=== PATIENT | female | born 2005 | race Two or more races ===

== ENCOUNTER 2024-06-20 19:54 | Observation (INO) | payer OTHER ==
[~2024-06-20] VITALS: Ht 172.7 cm; Wt 62.1 kg
[2024-06-20] MEDS: LACTATED RINGER'S 1,000 ML IV ONE (21:19)
--- NOTE | 2024-06-20 21:21 | DVH ---
EXAM: US OB ULTRASOUND COMP GTR 14 WKS HISTORY: NO CARE, PTL TECHNIQUE: Multiple real-time grayscale images of the gravid uterus with duplex Doppler color flow an d M-mode spectral analysis. COMPARISON: None FINDINGS: IUP single live fetus at 35 weeks, 0 days average ultrasound age (AUA) based on composite averages of the BPD, head circumference, abdominal circumference and femur length MEASUREMENTS: BPD: 8.7 cm GA: 35 w 1 d HC: 31.6 cm GA: 35 w 4 d AC: 30 cm GA: 33 w 5 d FL: 7.0 cm GA: 35 w 5 d Estimated weight 2473 grams; lbs oz, percentile. heart rate 160 beats per minute COLTEN 18.6 cm ANATOMIC SURVEY: Cephalic Presentation No placenta without previa or abruption Cervix is closed IMPRESSION: 1. IUP single live fetus at 35 weeks, 0 days, AUA corresponding to an GILBERTO of July 25, 2024. 2. No abnormality detected.
[2024-06-20] MEDS: TERBUTALINE SULFATE 1 MG/ML 1ML VIAL SC SCH (21:25)
--- NOTE | 2024-06-21 14:15 | DVHDS2 ---
Physician Discharge Progress N Final Diagnosis: cramping Operations or Procedures: Operations or Procedures nst,,sono Condition on Discharge: Good Disposition: Home Discharge Instructions: Diet: Regular Activity: Light activity Medications: na Follow Up Care: Specialist: 2d Discharge Statement: "Patient was advised to return to the ER or call 911 if any headaches, dizziness , shortness of breath, chest pain, abdominal pain, bleeding, fevers, or worsening of medical condition. Patient was counseled about treatment plan, medications, possible side effects, patientverbalized understanding. All questions were answered to the best of my ability. This discharge took greater then 30 minutes in planning, reviewing documentation, counseling the patient, and discussing with other team members." ANDREAS PARRA DO Jun 21, 2024 14:15
== END 2024-06-20 23:28 | disposition home or self-care (01) ==
LOC: LDRP 19:54
PROVIDERS: ADMIT Obstetrics & Gynecology; ATTEND Obstetrics & Gynecology
DX: O62.9 Abnormality of forces of labor, unspecified (principal); O99.891 Other specified diseases and conditions complicating pregnancy; M54.9 Dorsalgia, unspecified; Z3A.35 35 weeks gestation of pregnancy; Z79.899 Other long term (current) drug therapy; Z98.890 Other specified postprocedural states
CPT/HCPCS: 59025; 76805; 81002; 94760; 96360; 96361; 96372; G0378; J3105

== ENCOUNTER 2024-07-03 16:58 | Observation (INO) | payer OTHER ==
--- NOTE | 2024-07-03 18:20 | DVH ---
EXAM: US Abdomen Complete CLINICAL INDICATION: right sided abdominal pain TECHNIQUE: Real-time ultrasound of the abdomen with image documentation. COMPARISON: None FINDINGS: LIVER: Hepatopetal blood flow in the main portal vein. Liver measures up to 16.5 cm. No intrahepat ic bile duct dilation. GALLBLADDER: Unremarkable. No gallstones. COMMON BILE DUCT: Unremarkable as visualized. No stones. No dilation. Common bile duct measures 0 .35 cm in diameter. PANCREAS: Unremarkable as visualized. KIDNEYS: Right kidney measures up to 10.2 cm. No stones. No hydronephrosis. SPLEEN: Unremarkable. No splenomegaly. AORTA: Unremarkable. No aneurysm. INFERIOR VENA CAVA: Unremarkable. OTHER FINDINGS: . . IMPRESSION: Unremarkable exam. HS:Y
[2024-07-03 18:59] LABS: Basophils # (auto) 0 10 ^3/uL (0-0.2); Basophils % (auto) 0.4 % (0.0-2.0); Eosinophils # (auto) 0.1 10 ^3/uL (0-0.8); Eosinophils % (auto) 0.7 % (0.0-7.0); Hematocrit 32.4 % (36.0-46.0); Hemoglobin 10.4 g/dL (12.2-16.2); Lymphocytes # (auto) 1.1 10 ^3/uL (0.4-5.4); Lymphocytes % (auto) 8.9 % (10.0-50.0); Mean Corpuscular Hemoglobin 25.9 pg (28.0-32.0); Mean Corpuscular Volume 80.9 fL (80.0-100.0); Monocytes # (auto) 0.5 10 ^3/uL (0-1.3); Monocytes % (auto) 4.5 % (0.0-12.0); Neutrophils # (auto) 10.2 10 ^3/uL (1.6-8.6); Neutrophils % (auto) 85.5 % (37.0-80.0); Platelet Count (auto) 464 10^3/uL (140-450); White Blood Cell 11.9 10^3/uL (4.4-10.8)
[2024-07-03 19:07] LABS: Alanine Aminotransferase 34 U/L (7-40); Albumin 4.1 g/dL (3.2-4.8); Anion Gap 8 (5-15); Aspartate Aminotransferase 21 U/L (13-40); BUN/Creatinine Ratio 14.4 (10.0-20.0); Blood Urea Nitrogen 13 mg/dL (9-23); Calcium 9.6 mg/dL (8.7-10.4); Carbon Dioxide 23 mmol/L (20-31); Chloride 104 mmol/L (98-107); Glucose 80 mg/dL (74-106); Potassium 4.3 mmol/L (3.5-5.1)
[2024-07-03 19:08] LABS: Total Protein 7.8 g/dL (5.7-8.2)
[2024-07-03 19:17] LABS: Alkaline Phosphatase 259 U/L (46-116); Bilirubin, Total 0.3 mg/dL (0.2-1.0); Sodium 135 mmol/L (136-145)
[2024-07-03 19:24] LABS: INR 0.94 (0.9-1.15); Partial Thromboplastin Time 28.2 SEC (24.5-34.5)
[2024-07-03 19:37] LABS: Uric Acid 4.4 mg/dL (3.1-7.8)
[2024-07-03 19:59] LABS: Urine Bacteria MOD /hpf (None Seen); Urine Blood 1+ /uL (Negative); Urine Clarity Turbid (Clear); Urine Color Colorless (Yellow); Urine Protein, UAD 1+ (Negative); Urine Specific Gravity 1.005 (1.001-1.035); Urine Urobilinogen Normal (Negative); Urine WBC 357 /hpf (0 - 5); Urine WBC Clumps PRESENT /hpf (None Seen); Urine pH 6.5 (5.0-9.0)
[2024-07-03] MEDS ORDERED: FER325T PO (20:02)
[2024-07-03] MEDS ORDERED: PREN-96 PO (20:02)
[2024-07-03 20:08] LABS: Protein, Urine 82.6 mg/dL (1-14)
[2024-07-03 20:10] LABS: Creatinine, Urine 19.06 mg/dL (30.0-125.0); Urine Protein/Creatinine Ratio 4.33
[2024-07-03 20:14] LABS: Amphetamine Screen, Urine Neg (NEGATIVE); Barbiturate Scree,Urine Neg (NEGATIVE); Benzodiazephine Screen, Urine Neg (NEGATIVE); Cannabinoid Screen, Urine Neg (NEGATIVE); Cocaine Screen, Urine Neg (NEGATIVE); Opiate Scree,Urine Neg (NEGATIVE); Phencyclidine Screen, Urine Neg (NEGATIVE)
--- NOTE | 2024-07-03 20:43 | DVHDS2 ---
Physician Discharge Progress N Final Diagnosis: right sided abdominal pain Operations or Procedures: Operations or Procedures S: 19yo IUP@36.6wks presents to OB triage with right sided abdominal pain that starts from under her right breast and down to her pelvis then radiates down her right leg. Denies UCs/LOF/VB/ASTUDILLO/vision changes. Endorses +FM. No care because she could not find an OB provider to accept her for care. Pt found out she was at 27 weeks. GILBERTO of 07/25/24 is based on a OB complete sono done here on 06/20/24. O: VSS, normotensive NST reactive GBS swab collected SVE by RN: /-3 Laboratory Tests Test 07/03/24 17:24 07/03/24 17:45 07/03/24 19:53 Range/Units Urine Color Colorless Yellow Urine Clarity Turbid H Clear Urine pH 6.5 5.0-9.0 Urine Specific [place] 1.005 1.001-1.035 Urine Protein 1+ H Negative Urine Ketones Negative Negative Urine Blood 1+ H Negative /uL Urine Nitrite Negative Negative Urine Bilirubin Negative Negative Urine Urobilinogen Normal Negative mg/dL Urine Leukocyte Esterase 3+ Negative /uL Urine RBC 5 0 - 4 /hpf Urine WBC 357 0 - 5 /hpf Urine WBC Clumps Present None Seen /hpf Urine Squamous Epithelial Cells Few <5 /hpf Urine Bacteria Mod H None Seen /hpf Urine Creatinine 19.06 L 30.0-125.0 mg/dL Urine Protein/Creatinine Ratio 4.33 Urine Glucose Normal Normal mg/dL Urine Total Protein 82.6 H 1-14 mg/dL Urine Opiates Screen Neg NEGATIVE Urine Fentanyl Screen Neg NEGATIVE Urine Barbiturates Screen Neg NEGATIVE Urine Phencyclidine Screen Neg NEGATIVE Urine Amphetamines Screen Neg NEGATIVE Urine Benzodiazepines Screen Neg NEGATIVE Urine Cocaine Screen Neg NEGATIVE Urine Cannabinoids Screen Neg NEGATIVE White Blood Count 11.9 H 4.4-10.8 10^3/uL Red Blood Count 4.00 4.0-5.20 10^6/uL Hemoglobin 10.4 L 12.2-16.2 g/dL Hematocrit 32.4 L 36.0-46.0 % Mean Corpuscular Volume 80.9 80.0-100.0 fL Mean Corpuscular Hemoglobin 25.9 L 28.0-32.0 pg Mean Corpuscular Hemoglobin Concent 32.0 32.0-36.0 g/dL Red Cell Distribution Width 14.0 11.8-14.3 % Platelet Count 464 H 140-450 10^3/uL Mean Platelet Volume 7.1 6.9-10.8 fL Neutrophils (%) (Auto) 85.5 H 37.0-80.0 % Lymphocytes (%) (Auto) 8.9 L 10.0-50.0 % Monocytes (%) (Auto) 4.5 0.0-12.0 % Eosinophils (%) (Auto) 0.7 0.0-7.0 % Basophils (%) (Auto) 0.4 0.0-2.0 % Neutrophils # (Auto) 10.2 H 1.6-8.6 10 ^3/uL Lymphocytes # (Auto) 1.1 0.4-5.4 10 ^3/uL Monocytes # (Auto) 0.5 0-1.3 10 ^3/uL Eosinophils # (Auto) 0.1 0-0.8 10 ^3/uL Basophils # (Auto) 0 0-0.2 10 ^3/uL Nucleated Red Blood Cells 0.0 % Prothrombin Time 10.0 9.3-11.8 sec Prothrombin Time INR 0.94 0.9-1.15 Activated Partial Thromboplast Time 28.2 24.5-34.5 SEC Sodium Level 135 L 136-145 mmol/L Potassium Level 4.3 3.5-5.1 mmol/L Chloride Level 104 98-107 mmol/L Carbon Dioxide Level 23 20-31 mmol/L Anion Gap 8 5-15 Blood Urea Nitrogen 13 9-23 mg/dL Creatinine 0.90 0.550-1.02 mg/dL Glomerular Filtration Rate Calc 94 >90 mL/min BUN/Creatinine Ratio 14.4 10.0-20.0 Serum Glucose 80 74-106 mg/dL Hemoglobin A1c 4.9 <5.7 % A1C Uric Acid 4.4 3.1-7.8 mg/dL Calcium Level 9.6 8.7-10.4 mg/dL Total Bilirubin 0.3 0.2-1.0 mg/dL Aspartate Amino Transferase (AST) 21 13-40 U/L Alanine Aminotransferase (ALT) 34 7-40 U/L Alkaline Phosphatase 259 H 46-116 U/L Total Protein 7.8 5.7-8.2 g/dL Albumin 4.1 3.2-4.8 g/dL Rapid Plasma Reagin Pending Treponema pallidum Ab (TP-PA) Pending Chlamydia trachomatis (ROSE) Pending Hepatitis B Surface Antigen Negative Negative Hepatitis C Antibody Negative Negative HIV (1&2) Antibody Negative Negative Neisseria gonorrhoeae (ROSE) Pending Rubella IgG Antibody Pending TB Test (QFT) Gold Plus Pending TB Test (QFT) Nil Pending TB Test (QFT) Mitogen Pending TB Test (QFT) Antigen 1 Pending TB Test (QFT) Antigen 2 Pending TB Test (QFT) Criteria Pending A: 19yo IUP@36.6wks Right sided abdominal pain P: D/C home Dr. Holden consulted, pt is to return 07/05/24 morning with 24 hr urine collection. kick counts and Preeclampsia warning signs reviewed. PTL/labor precautions given and when to return to the hospital. Other Interventions Other Interventions [place] [address] Ph: [phone] DIAGNOSTIC IMAGING Diagnostic Imaging Report : [id number] Signed PATIENT: NIKOLAS BOYD ACCT: [id number] UNIT: [id number] : 2005 LOC: [facility] ROOM / BED: TRIAGE3 / A AGE / SEX: 19 / F ADM STATUS: ADM IN SERVICE 1742 ORDERING PHYSICIAN: ENRIQUE CROW CNM PROCEDURE(s): ABDC - ABDOMEN COMPLETE SONOGRAM REASON: right sided abdominal pain ORDER NUMBER(s): [id number], ACCESSION NUMBER(s): [id number] EXAM: US Abdomen Complete CLINICAL INDICATION: right sided abdominal pain TECHNIQUE: Real-time ultrasound of the abdomen with image documentation. COMPARISON: None FINDINGS: LIVER: Hepatopetal blood flow in the main portal vein. Liver measures up to 16.5 cm. No intrahepatic bile duct dilation. GALLBLADDER: Unremarkable. No gallstones. COMMON BILE DUCT: Unremarkable as visualized. No stones. No dilation. Common bile duct measures 0.35 cm in diameter. PANCREAS: Unremarkable as visualized. KIDNEYS: Right kidney measures up to 10.2 cm. No stones. No hydronephrosis. SPLEEN: Unremarkable. No splenomegaly. AORTA: Unremarkable. No aneurysm. INFERIOR VENA CAVA: Unremarkable. OTHER FINDINGS: . . IMPRESSION: Unremarkable exam. HS:Y ATED BY: HARISH HERNANDEZ MD DICTATED DATE/TIME: 07/03/241817 SIGNED BY: HARISH HERNANDEZ MD SIGNED DATE/TIME: 07/03/241817 CC: Condition on Discharge: Stable Disposition: Home Discharge Instructions: Diet: Regular Activity: No Restrictions, As Tolerated Medications: see med list Follow Up Care: Specialist: Pt is to return 07/05/24 morning with 24 hr urine collection Discharge Statement: "Patient was advised to return to the ER or call 911 if any headaches, dizziness, shortness of breath, chest pain, abdominal pain, bleeding, fevers, or worsening of medical condition. Patient was counseled about treatment plan, medications, possible side effects, patientverbalized understanding. All questions were answered to the best of my ability. This discharge took greater then 30 minutes in planning, reviewing documentation, counseling the patient, and discussing with other team members." ENRIQUE CROW [facility] Jul 03, 2024 20:43
[2024-07-03] MEDS ORDERED: ACET-1304 PO (20:44)
[2024-07-05 08:06] LABS: RPR Non Reactive (Non Reactive)
[2024-07-05 23:06] LABS: Chlamydia Trachomatis, NAA Negative (Negative); Neisseria gonorrhoeae, NAA Negative (Negative)
== END 2024-07-03 20:58 | disposition home or self-care (01) ==
LOC: LDRP 16:58
PROVIDERS: ADMIT Obstetrics & Gynecology; ATTEND Obstetrics & Gynecology
DX: O26.893 Other specified pregnancy related conditions, third trimester (principal); R10.11 Right upper quadrant pain; R10.31 Right lower quadrant pain; Z3A.36 36 weeks gestation of pregnancy; Z79.899 Other long term (current) drug therapy
CPT/HCPCS: 36415; 59025; 76700; 80053; 80307; 81001; 81002; 82570; 83036; 84156; 84550; 85025; 85610; 85730; 86592; 86703; 86762; 86780; 86803; 86850; 86900; 86901; 87081; 87086; 87340; 87491; 87591; 94760; G0378; 87088; 87186

== ENCOUNTER 2024-07-05 19:02 | Observation (INO) | payer MEDICAID, OTHER ==
[~2024-07-05] VITALS: Ht 172.7 cm; Wt 59.0 kg
[~2024-07-05 19:02] MED LIST: ACET-1304 PO; FER325T PO; PREN-96 PO
--- NOTE | 2024-07-05 20:41 | DVH ---
[facility] [address] [facility] [address] Ph: [phone] DIAGNOSTIC IMAGING Diagnostic Imaging Report : [id number] Signed PATIENT: NIKOLAS BOYD ACCT: [id number] UNIT: [id number] : 2005 LOC: LD ROOM / BED: TRIAGE3 / A AGE / SEX: 19 / F ADM STATUS: ADM IN SERVICE 35 ORDERING PHYSICIAN: HIPOLITO DOMINGUEZ DO PROCEDURE(s): BPP - BIOPHYSICAL PROFILE REASON: Mikaela ORDER NUMBER(s): [id number], ACCESSION NUMBER(s): [id number] BIOPHYSICAL PROFILE HISTORY: Mikaela TECHNIQUE: Multiple transabdominal real-time grayscale sonographic images through the gravid uterus of the fetus with duplex Doppler color flow and M-mode spectral analysis FINDINGS: BIOPHYSICAL PROFILE: breathing score: 2 movement score: 2 tone score: 2 Quantitative COLTEN score: 2 (COLTEN: 16.1 Cm.) Total score: 8/8 Single live fetus in cephalic presentation. heart rate 129 beats per minute. Grade 2-3 placenta without previa or abruption. Posterior Single live fetus at 37 weeks 1 day Biophysical profile score 8/8 corresponding to an GILBERTO of 07/25/2024 IMPRESSION: 1. Biophysical profile score: 8/8 ATED BY: PARI GUY Jr., DO DICTATED DATE/TIME: 07/05/242037 SIGNED BY: PARI GUY Jr., DO SIGNED DATE/TIME: 07/05/242037 CC:
--- NOTE | 2024-07-05 21:19 | DVHDS2 ---
Physician Discharge Progress N Final Diagnosis: Cholestasis of Secondary Diagnosis: Encounter for surveillance Operations or Procedures: Operations or Procedures NST/BPP/COLTEN Limited OB US [place] [address] Ph: [phone] DIAGNOSTIC IMAGING Diagnostic Imaging Report : [id number] Signed PATIENT: NIKOLAS BOYD ACCT: [id number] UNIT: [id number] : 2005 LOC: [facility] ROOM / BED: TRIAGE3 / A AGE / SEX: 19 / F ADM STATUS: ADM IN SERVICE 35 ORDERING PHYSICIAN: HIPOLITO DOMINGUEZ DO PROCEDURE(s): BPP - BIOPHYSICAL PROFILE REASON: Mikaela ORDER NUMBER(s): [id number], ACCESSION NUMBER(s): [id number] [place] [address] Ph: [phone] DIAGNOSTIC IMAGING Diagnostic Imaging Report : [id number] Signed PATIENT: NIKOLAS BOYD ACCT: [id number] UNIT: [id number] : 2005 LOC: [facility] ROOM / BED: TRIAGE3 / A AGE / SEX: 19 / F ADM STATUS: ADM IN SERVICE 35 ORDERING PHYSICIAN: HIPOLITO DOMINGUEZ DO PROCEDURE(s): BPP - BIOPHYSICAL PROFILE REASON: Mikaela ORDER NUMBER(s): [id number], ACCESSION NUMBER(s): [id number] BIOPHYSICAL PROFILE HISTORY: Mikaela TECHNIQUE: Multiple transabdominal real-time grayscale sonographic images through the gravid uterus of the fetus with duplex Doppler color flow and M-mode spectral analysis FINDINGS: BIOPHYSICAL PROFILE: breathing score: 2 movement score: 2 tone score: 2 Quantitative COLTEN score: 2 (COLTEN: 16.1 Cm.) Total score: 8/8 Single live fetus in cephalic presentation. heart rate 129 beats per minute. Grade 2-3 placenta without previa or abruption. Posterior Single live fetus at 37 weeks 1 day Biophysical profile score 8/8 corresponding to an GILBERTO of 07/25/2024 IMPRESSION: 1. Biophysical profile score: 8/8 Condition on Discharge: Stable Disposition: Home Discharge Instructions: Diet: Regular Activity: Light activity Follow Up/Referral: as scheduled Medications: N/A Follow Up Care: Discharge Statement: "Patient was advised to return to the ER or call 911 if any headaches, dizziness, shortness of breath, chest pain, abdominal pain, bleeding, fevers, or worsening of medical condition. Patient was counseled about treatment plan, medications, possible side effects, patientverbalized understanding. All questions were answered to the best of my ability. This discharge took greater then 30 minutes in planning, reviewing documentation, counseling the patient, and discussing with other team members." HIPOLITO DOMINGUEZ DO Jul 05, 2024 21:19
== END 2024-07-05 22:21 | disposition home or self-care (01) ==
LOC: LDRP 19:02
PROVIDERS: ADMIT Obstetrics & Gynecology; ATTEND Obstetrics & Gynecology
DX: O26.643 Intrahepatic cholestasis of pregnancy, third trimester (principal); K83.1 Obstruction of bile duct; O26.893 Other specified pregnancy related conditions, third trimester; R10.9 Unspecified abdominal pain; M79.604 Pain in right leg; Z87.891 Personal history of nicotine dependence; Z3A.37 37 weeks gestation of pregnancy
CPT/HCPCS: 59025; 76818; 84156; 94760; G0378

== ENCOUNTER 2024-07-12 07:57 | Observation (INO) | payer MEDICAID ==
--- NOTE | 2024-07-13 21:01 | DVH ---
BIOPHYSICAL PROFILE HISTORY: Cholestasis TECHNIQUE: Multiple transabdominal real-time grayscale sonographic images through the gravid uterus of the fetus with duplex Doppler color flow and M-mode spectral analysis FINDINGS: BIOPHYSICAL PROFILE: breathing score: 2 movement score: 2 tone score: 2 Quantitative COLTEN score: 2 (COLTEN: 15.3 Cm.) Total score: 8/8 Single live fetus in cephalic presentation. heart rate 137 beats per minute. Posterior Grade 2 placenta without previa or abruption Single live fetus at 38 weeks 2 days Biophysical profile score 8/8 corresponding to an GILBERTO of IMPRESSION: 1. Biophysical profile score: 8/8
--- NOTE | 2024-07-14 07:46 | DVHDS2 ---
Physician Discharge Progress N Final Diagnosis: LABOR CHECK DENIES PURIRITUS NO EVIDENCE OF CHOLESTASIS NO CARE Operations or Procedures: Operations or Procedures NST,SONO Consultations: Consultations PT URGED TO FU AT [facility] OR [facility] RISK OF IUFD D/W PT PT HAS NO PNC UNKNOWN EDC Condition on Discharge: Good Disposition: Home Discharge Instructions: Diet: Regular Activity: No Restrictions, As Tolerated Medications: NA Follow Up Care: Specialist: 1 DAY WITH [facility] Discharge Statement: "Patient was advised to return to the ER or call 911 if any headaches, dizziness, shortness of breath, chest pain, abdominal pain, bleeding, fevers, or worsening of medical condition. Patient was counseled about treatment plan, medications, possible side effects, patientverbalized understanding. All questions were answered to the best of my ability. This discharge took greater then 30 minutes in planning, reviewing documentation, counseling the patient, and discussing with other team members." ANDREAS PARRA DO Jul 14, 2024 07:46
== END 2024-07-13 21:27 | disposition home or self-care (01) ==
LOC: LDRP 07-13 19:45
PROVIDERS: ADMIT Obstetrics & Gynecology; ATTEND Obstetrics & Gynecology
DX: O09.33 Supervision of pregnancy with insufficient antenatal care, third trimester (principal); Z3A.38 38 weeks gestation of pregnancy; Z87.891 Personal history of nicotine dependence; Z79.899 Other long term (current) drug therapy
CPT/HCPCS: 59025; 76818; 81002; 94760; G0378